=== PATIENT | female | born 1960 | race Hispanic/Latino ===

== ENCOUNTER 2021-10-30 23:08 | Inpatient (IN) | payer SELFPAY ==
--- NOTE | 2021-10-30 23:23 | Emergency Department Report ---
ED Neuro Deficit HPI - General Chief Complaint: Weakness Stated Complaint: POSS STROKE Time Seen by Provider: 10/30/21 23:15 - History of Present Illness Initial Comments: 61 yo F brought in by EMS with possible stroke with right sided weakness that started around 22:30 PM tonight. She was noticed to have facial droop on arrival at her home. Pt denies any WILKINSON or CP, SOB or palpitation. No other modifying or associated factors reported. - Related Data Home Medications: Home Medications Medication Instructions Recorded Confirmed Last Taken Colchicine [Colcrys] 1.8 mg PO PRN PRN 10/31/21 10/31/21 Unknown allopurinoL [Zyloprim] 1 tab PO DAILY 10/31/21 10/31/21 1 Day Ago ~10/30/21 atenoloL [Tenormin] 50 mg PO DAILY 10/31/21 10/31/21 Unknown lisinopriL [Lisinopril] 1 tab PO DAILY 10/31/21 10/31/21 1 Day Ago ~10/30/21 Allergies/Adverse Reactions: Allergies Allergy/AdvReac Type Severity Reaction Status Date / Time No Known Allergies Allergy Verified 10/31/21 06:07 ED Review of Systems ROS: Stated complaint: POSS STROKE Other details as noted in HPI Comment: All other systems reviewed and negative Neurological: weakness (right sided ), other (facial droop) ED Past Medical Hx - Past Medical History Previous Medical History?: No - Social History Substance Use Type: Alcohol - Medications Home Medications: Home Medications Medication Instructions Recorded Confirmed Last Taken Type Colchicine [Colcrys] 1.8 mg PO PRN PRN 10/31/21 10/31/21 Unknown History allopurinoL [Zyloprim] 1 tab PO DAILY 10/31/21 10/31/21 1 Day Ago History ~10/30/21 atenoloL [Tenormin] 50 mg PO DAILY 10/31/21 10/31/21 Unknown History lisinopriL [Lisinopril] 1 tab PO DAILY 10/31/21 10/31/21 1 Day Ago History ~10/30/21 ED Neuro Physical Exam - General Limitations: No Limitations General appearance: alert, in no apparent distress Suspected Stroke: Yes - Head Head exam: Present: atraumatic, normal inspection - Eye Eye exam: Present: normal appearance, PERRL, EOMI Pupils: Present: normal accommodation - ENT ENT exam: Present: normal exam, normal orophraynx, mucous membranes moist - Neck Neck exam: Present: normal inspection, full ROM. Absent: tenderness - Respiratory Respiratory exam: Present: normal lung sounds bilaterally. Absent: respiratory distress, accessory muscle use - Cardiovascular Cardiovascular Exam: Present: regular rate, normal rhythm, normal heart sounds - GI/Abdominal GI/Abdominal exam: Present: soft, normal bowel sounds. Absent: distended, tenderness - Neurological Exam Neurological exam: Present: alert, oriented X3, CN II-XII intact, reflexes normal - NIHSS Assessment Interval: Baseline 1a. Level of Consciousness: alert/keenly responsive 1b. LOC Questions: answers both correctly 1c. LOC Commands: performs tasks correctly 2. Best Gaze: normal 3. Visual: no visual loss 4. Facial Palsy: minor paralysis (right side) 5b. Motor Arm Right: drift 5a. Motor Arm Left: no drift 6a. Motor Leg Left: no drift 6b. Motor Leg Right: no drift 7. Limb Ataxia: absent 8. Sensory: normal 9. Best Language: no aphasia 10. Dysarthria: normal 11. Extinction/Inattention: no abnormality Total Score: 2 Stroke Severity: Minor Stroke - Psychiatric Psychiatric exam: Present: normal affect, normal mood - Skin Skin exam: Present: warm, intact, normal color ED Course Vital Signs 10/30/21 10/31/21 10/31/21 23:45 00:10 00:31 Pulse Rate 78 66 Respiratory 12 11 L Rate Blood Pressure 127/72 O2 Sat by Pulse 95 97 95 Oximetry 10/31/21 10/31/21 10/31/21 01:01 01:31 02:01 Pulse Rate 68 71 70 Respiratory 12 16 16 Rate Blood Pressure 148/76 120/75 139/70 O2 Sat by Pulse 96 95 94 Oximetry 10/31/21 10/31/21 10/31/21 02:31 03:01 03:31 Pulse Rate 68 68 74 Respiratory 17 18 17 Rate Blood Pressure 143/76 125/68 113/58 O2 Sat by Pulse 93 94 95 Oximetry 10/31/21 10/31/21 04:00 04:01 Pulse Rate 85 75 Respiratory 17 Rate Blood Pressure 122/57 O2 Sat by Pulse 100 94 Oximetry - Reevaluation(s) Reevaluation #1: 10/30/21 23:32 here with possible stroke with right sided weakness and noted with mild right facial droops-- CT head ordered with other routine CVA labs -- Got a call from Dr Yamileth Rock the neurologist gabe who recommended tPA after the CT head is resulted negative for intracranial hemorrhage. Will go ahead and order CTA brain and neck as well for further evaluation and treatment. 10/30/21 23:36 Reevaluation #2: 10/30/21 23:49 Pt reports complete resolution of her symptoms after returning from her CT department, no more facial droop or any weakness in her right hand or leg. She also mentioned to me that she was worried any hospital bill because she doesn't have insurance. I reassured her that taken care of her is our number one pr iority. I explained to her that it is reassuring that her symptoms has resolved at this point and that she is not out of the hook yet as she can develop a major event in the next 72 hours. And that is the reason while she needs to stay so will can complete her workup. Pt also told me that she took colchicine around 12 noon yesterday and had a glass of wine tonight before she started having the symptoms. 10/31/21 00:07 10/31/21 00:12 Reevaluation #3: 10/31/21 00:11 CTA brain and neck resulted to be negative for any big artery occlusion-- Reevaluation #4: 10/31/21 00:56 Dr Yamileth Rock updated about the resolution of this patient symptoms-- she agreed not to give the tPA any longer considering the rapid resolution. She however still wanted patient admitted for full neuro workup. 10/31/21 01:31 Dr Monge consulted who accept pt for further evaluation and treatment - Lab Data Result diagrams: 10/30/21 23:37 10/30/21 23:37 Lab Results 10/30/21 10/30/21 10/30/21 Range/Units 23:37 23:37 23:37 WBC 6.4 (4.5-11.0) K/mm3 RBC 3.70 (3.65-5.03) M/mm3 Hgb 12.5 (10.1-14.3) gm/dl Hct 36.0 (30.3-42.9) % MCV 97 (79-97) fl MCH 34 H (28-32) pg MCHC 35 H (30-34) % RDW 14.7 (13.2-15.2) % Plt Count 195 (140-440) K/mm3 Add Manual Diff Complete Total Counted 100 Seg Neutrophils % Horticulturalist Seg Neuts % (Manual) 36.0 L (40.0-70.0) % Band Neutrophils % 0 % Lymphocytes % (Manual) 54.0 H (13.4-35.0) % Reactive Lymphs % (Man) 3.0 % Monocytes % (Manual) 7.0 (0.0-7.3) % Eosinophils % (Manual) 0 (0.0-4.3) % Basophils % (Manual) 0 (0.0-1.8) % Metamyelocytes % 0 % Myelocytes % 0 % Promyelocytes % 0 % Blast Cells % 0 % Nucleated RBC % Not Reportable Seg Neutrophils # Man 2.3 (1.8-7.7) K/mm3 Band Neutrophils # 0.0 K/mm3 Lymphocytes # (Manual) 3.5 (1.2-5.4) K/mm3 Abs React Lymphs (Man) 0.2 K/mm3 Monocytes # (Manual) 0.4 (0.0-0.8) K/mm3 Eosinophils # (Manual) 0.0 (0.0-0.4) K/mm3 Basophils # (Manual) 0.0 (0.0-0.1) K/mm3 Metamyelocytes # 0.0 K/mm3 Myelocytes # 0.0 K/mm3 Promyelocytes # 0.0 K/mm3 Blast Cells # 0.0 K/mm3 WBC Morphology Not Reportable Hypersegmented Neuts Not Reportable Hyposegmented Neuts Not Reportable Hypogranular Neuts Not Reportable Smudge Cells Not Reportable Toxic Granulation Not Reportable Toxic Vacuolation Not Reportable Dohle Bodies Not Reportable Pelger-Huet Anomaly Not Reportable Nehemias Rods Not Reportable Platelet Estimate Consistent w auto Clumped Platelets Not Reportable Plt Clumps, EDTA Not Reportable Large Platelets Not Reportable Giant Platelets Not Reportable Platelet Satelliting Not Reportable Plt Morphology Comment Not Reportable RBC Morphology Not Reportable Dimorphic RBCs Not Reportable Polychromasia Not Reportable Hypochromasia Not Reportable Poikilocytosis Not Reportable Anisocytosis 1+ Microcytosis Not Reportable Macrocytosis Not Reportable Spherocytes Not Reportable Pappenheimer Bodies Not Reportable Sickle Cells Not Reportable Target Cells Not Reportable Tear Drop Cells Not Reportable Ovalocytes Not Reportable Helmet Cells Not Reportable [place] Bodies Not Reportable Ideal Rings Not Reportable [place] Cells Not Reportable Bite Cells Not Reportable Crenated Cell Not Reportable Elliptocytes Not Reportable Acanthocytes (Spur) Not Reportable Rouleaux Not Reportable Hemoglobin C Crystals Not Reportable Schistocytes Not Reportable Malaria parasites Not Reportable Jaspal Bodies Not Reportable Hem Pathologist Commnt No PT (12.2-14.9) Sec. INR (0.87-1.13) APTT (24.2-36.6) Sec. Sodium 125 L (137-145) mmol/L Potassium 4.2 (3.6-5.0) mmol/L Chloride 90.0 L (98-107) mmol/L Carbon Dioxide 18 L (22-30) mmol/L Anion Gap 21 mmol/L BUN 11 (7-17) mg/dL Creatinine 1.0 (0.6-1.2) mg/dL Estimated GFR 56 ml/min BUN/Creatinine Ratio 11 % Glucose 118 H (65-100) mg/dL POC Glucose (70-105) mg/dL Calcium 8.6 (8.4-10.2) mg/dL Total Bilirubin 0.20 (0.1-1.2) mg/dL AST 52 H (5-40) units/L ALT 57 H (7-56) units/L Alkaline Phosphatase 64 (35-129) units/L Troponin T < 0.010 (0.00-0.029) ng/mL Total Protein 5.8 L (6.3-8.2) g/dL Albumin 3.8 L (3.9-5) g/dL Albumin/Globulin Ratio 1.9 % TSH 3.280 (0.270-4.200) mlU/mL Urine Color (Yellow) Urine Turbidity (Clear) Urine pH (5.0-7.0) Ur Specific [place] (1.003-1.030) Urine Protein (Negative) mg/dL Urine Glucose (UA) (Negative) mg/dL Urine Ketones (Negative) mg/dL Urine Blood (Negative) Urine Nitrite (Negative) Urine Bilirubin (Negative) Urine Urobilinogen (<2.0) mg/dL Ur Leukocyte Esterase (Negative) Urine WBC (Auto) (0.0-6.0) /HPF Urine RBC (Auto) (0.0-6.0) /HPF U Epithel Cells (Auto) (0-13.0) /HPF Urine Mucus /HPF 10/30/21 10/30/21 10/31/21 Range/Units 23:37 Unknown 00:14 WBC (4.5-11.0) K/mm3 RBC (3.65-5.03) M/mm3 Hgb (10.1-14.3) gm/dl Hct (30.3-42.9) % MCV (79-97) fl MCH (28-32) pg MCHC (30-34) % RDW (13.2-15.2) % Plt Count (140-440) K/mm3 Add Manual Diff Total Counted Seg Neutrophils % Seg Neuts % (Manual) (40.0-70.0) % Band Neutrophils % % Lymphocytes % (Manual) (13.4-35.0) % Reactive Lymphs % (Man) % Monocytes % (Manual) (0.0-7.3) % Eosinophils % (Manual) (0.0-4.3) % Basophils % (Manual) (0.0-1.8) % Metamyelocytes % % Myelocytes % % Promyelocytes % % Blast Cells % % Nucleated RBC % Seg Neutrophils # Man (1.8-7.7) K/mm3 Band Neutrophils # K/mm3 Lymphocytes # (Manual) (1.2-5.4) K/mm3 Abs React Lymphs (Man) K/mm3 Monocytes # (Manual) (0.0-0.8) K/mm3 Eosinophils # (Manual) (0.0-0.4) K/mm3 Basophils # (Manual) (0.0-0.1) K/mm3 Metamyelocytes # K/mm3 Myelocytes # K/mm3 Promyelocytes # K/mm3 Blast Cells # K/mm3 WBC Morphology Hypersegmented Neuts Hyposegmented Neuts Hypogranular Neuts Smudge Cells Toxic Granulation Toxic Vacuolation Dohle Bodies Pelger-Huet Anomaly Nehemias Rods Platelet Estimate Clumped Platelets Plt Clumps, EDTA Large Platelets Giant Platelets Platelet Satelliting Plt Morphology Comment RBC Morphology Dimorphic RBCs Polychromasia Hypochromasia Poikilocytosis Anisocytosis Microcytosis Macrocytosis Spherocytes Pappenheimer Bodies Sickle Cells Target Cells Tear Drop Cells Ovalocytes Helmet Cells [place] Bodies Ideal Rings [place] Cells Bite Cells Crenated Cell Elliptocytes Acanthocytes (Spur) Rouleaux Hemoglobin C Crystals Schistocytes Malaria parasites Jaspal Bodies Hem Pathologist Commnt PT 15.4 H (12.2-14.9) Sec. INR 1.09 (0.87-1.13) APTT 29.4 (24.2-36.6) Sec. Sodium (137-145) mmol/L Potassium (3.6-5.0) mmol/L Chloride (98-107) mmol/L Carbon Dioxide (22-30) mmol/L Anion Gap mmol/L BUN (7-17) mg/dL Creatinine (0.6-1.2) mg/dL Estimated GFR ml/min BUN/Creatinine Ratio % Glucose (65-100) mg/dL POC Glucose 107 H (70-105) mg/dL Calcium (8.4-10.2) mg/dL Total Bilirubin (0.1-1.2) mg/dL AST (5-40) units/L ALT (7-56) units/L Alkaline Phosphatase (35-129) units/L Troponin T (0.00-0.029) ng/mL Total Protein (6.3-8.2) g/dL Albumin (3.9-5) g/dL Albumin/Globulin Ratio % TSH (0.270-4.200) mlU/mL Urine Color Colorless (Yellow) Urine Turbidity Clear (Clear) Urine pH 5.0 (5.0-7.0) Ur Specific [place] 1.018 (1.003-1.030) Urine Protein <15 mg/dl (Negative) mg/dL Urine Glucose (UA) Neg (Negative) mg/dL Urine Ketones Neg (Negative) mg/dL Urine Blood Neg (Negative) Urine Nitrite Neg (Negative) Urine Bilirubin Neg (Negative) Urine Urobilinogen < 2.0 (<2.0) mg/dL Ur Leukocyte Esterase Neg (Negative) Urine WBC (Auto) < 1.0 (0.0-6.0) /HPF Urine RBC (Auto) 0.0 (0.0-6.0) /HPF U Epithel Cells (Auto) < 1.0 (0-13.0) /HPF Urine Mucus Few /HPF - EKG Data -: EKG Interpreted by Me EKG shows normal: sinus rhythm Rate: normal When compared to previous EKG there are: previous EKG unavailable Interpretation: nonspecific ST-T wave shamir - Core Measures AMI Core Measures Followed: Yes Measure Exclusions: not indicated Critical care attestation.: If time is entered above; I have spent that time in minutes in the direct care of this critically ill patient, excluding procedure time. ED Disposition Clinical Impression: Ischemic stroke, TIA (transient ischemic attack) Disposition: ADMITTED INPATIENT Is pt being admited?: Yes Does the pt Need Aspirin: No Condition: Serious Time of Disposition: 01:32
[2021-10-30] MEDS ORDERED: ALTEPLASE 100 MG INJ KIT ONE (23:25)
--- NOTE | 2021-10-30 23:25 | Emergency Department Report ---
Blank Doc - Documentation Documentation: [facility] Consult Note # Demographics Consult Type: Acute Stroke Level 1 (0-4.5 hrs) Patient Location: Emergency Room First Name: Rosy Staples Last Name: Paco Date of : 1960 Age: 61 Gender: Female Facility: [facility] Time of Initial Page ( Time): 10/30/2021, 23:16 Time of Return Call ( Time): 10/30/2021, 23:16 # HPI History: 2199 right sided weakness started. Possible Thrombolytic candidate: not on warfarin or NOACs no intracranial hemorrhage history no recent major surgery no known active major internal bleeding no known blood disorders # Scores Time of exam and NIHSS (): 10/30/2021, 23:16 Level of Consciousness 1a: [0] = Alert; keenly responsive LOC Questions 1b: [0] = Answers both questions correctly LOC Commands 1c: [0] = Performs both tasks correctly Best Gaze 2: [0] = Normal Visual 3: [0] = No visual loss Facial Palsy 4: [2] = Partial paralysis Motor Arm Left 5a: [0] = No drift Motor Arm Right 5b: [1] = Drift Motor Leg Left 6a: [0] = No drift Motor Leg Right 6b: [1] = Drift Limb Ataxia 7: [0] = Absent Sensory 8: [1] = [id number]-[id number] sensory loss Best Language 9: [0] = No aphasia Dysarthria 10: [1] = [id number] dysarthria Extinction and Inattention 11: [0] = No abnormality NIHSS Total: 6 # Data Head CT: no bleed preliminary read awaiting formal read on CT prior to tPA # Assessment Impression: Ischemic Stroke (Acute) # Plan Thrombolytic/Intervention: IV Thrombolysis Intraarterial Exclusion: clinically consistent with small vessel disease Time IV Thrombolytic Recommended (): 10/30/2021, 23:18 Blood Pressure Management: nicardipine labetolol Labs: hemoglobin A1c lipid panel Imaging: (urgency: STAT): CT Angiogram Head and CT Angiogram Neck AND call back with results if abnormal Imaging: (urgency: routine): MRI Brain without contrast Diagnostic Test: echo without bubble study Therapy/Evaluation: NPO until swallow evaluation PT/OT evaluation speech/swallow consultation Medication: start statin with goal of LDL < 70 DVT Prophylaxis: SCD Thrombolytic Administration Recommendations: I reviewed the risks/benefits/alternatives of IV thrombolytic therapy with the patient. They understand there is potential of life threatening hemorrhage from IV thrombolysis. I stated that I believe benefits outweighs risk. They wish to proceed with IV thrombolytic therapy. I have collected independent history specific to time last normal or last known well. We have collaborated with the ED provider and at this time, we have the most current timeline with the information that is available. BP goal< 180/105 for 24hrs post Thrombolytic administration Use Labetolol 10-20mg IV prn or Nicardipine gtt to maintain BP parameters No antiplatelets or anticoagulants for next 24 hrs unless indicated for emergent IA procedure or other life threatening situation ICU admission Call back if there is any decline in neurological condition the patient provided verbal consent to thrombolytics after the risks benefits and alternatives to treatment were discussed as above. Witnesses to this conversation were the sorter/assay tech and the bedside nurse Other: LDL < 70 If patient has any neurological deterioration please call me back immediately permissive hypertension telemetry monitoring I have discussed my recommendations with the referring provider # Logistics Telemedicine: Interactive 2 way audio and visual telecommunication technology was utilized during this visit
[2021-10-30 23:48] LABS: Hemoglobin 12.5 gm/dl (10.1-14.3); Mean Corpuscular HGB Conc 35 % (30-34); Mean Corpuscular Volume 97 fl (79-97); Platelet Count 195 K/mm3 (140-440); Red Cell Distribution Width 14.7 % (13.2-15.2)
--- NOTE | 2021-10-30 23:56 | Cat Scan Report ---
CT HEAD WITHOUT CONTRAST INDICATION / CLINICAL INFORMATION: stroke. Right-sided facial droop and numbness resolved at the time of notification. TECHNIQUE: CT head was performed without administration of intravenous contrast. All CT scans at this location are performed using CT dose reduction for ALARA by means of automated exposure control. COMPARISON: None available. FINDINGS: CEREBRAL PARENCHYMA: Generalized cortical and central atrophy. Periventricular regions of white matte r hypoattenuation compatible with microvascular ischemia. Focal hypodensity within the left frontal w adela matter and centrum semiovale ill-defined subcortical hypoattenuation right frontal white matter are demonstrated. Additional small lacunar infarctions within the basal ganglia present. HEMORRHAGE: None. EXTRA-AXIAL SPACES: Normal in size and morphology for the patient's age. VENTRICULAR SYSTEM: Normal in size and morphology for the patient's age. MIDLINE SHIFT / HERNIATION: None. CEREBELLUM / BRAINSTEM: No significant abnormality. ORBITS: No significant abnormality. SOFT TISSUES: No significant abnormality. SKULL: No significant abnormality. PARANASAL SINUSES / MASTOID AIR CELLS: Normal as visualized. ADDITIONAL FINDINGS: None. IMPRESSION: 1. No acute intracranial abnormality. Senescent changes as detailed. CODE STROKE Time of Communication (CHILD WELFARE DIRECTOR/CDT): 2249 hours Licensed Practitioner Receiving Report: Dr. Gamble Signer Name: Saravanan Baxter II, MD Signed: 10/30/2021 11:51 PM Workstation Name: [id number] [id number]
[2021-10-31 00:01] LABS: INR 1.09 (0.87-1.13); Partial Thromboplastin Time 29.4 Sec. (24.2-36.6)
--- NOTE | 2021-10-31 00:02 | Cat Scan Report ---
CT angio neck, CT angio head INDICATION / CLINICAL INFORMATION: stroke. TECHNIQUE: CT angiography of head and neck was performed prior to and following administration of 100 cc of Omnipaque 350 intravenous contrast. In addition to axial source images, reconstructed coronal and sagittal MPR series as well as thin slab coronal and sagittal MIP series were provided. . Calcu lation of stenosis will be made using direct NASCET criteria. All CT scans at this location are perfo rmed using CT dose reduction for ALARA by means of automated exposure control. COMPARISON: None available. FINDINGS: VASCULAR FINDINGS: NECK: AORTA: The aorta demonstrates normal branch morphology. No acute aortic pathology. No severe stenosi s of great vessel origins. Mild to moderate stenosis of the left subclavian artery origin is suggeste d but blurred by motion. Small penetrating ulcer anterior margin of the arch measuring 2 to 3 mm. GREAT VESSELS: No significant abnormality demonstrated involving great vessels. VERTEBRAL ARTERIES: Vertebral origins are patent. The bilateral V2 segments demonstrate no significan t abnormality. Right vertebral artery dominant. RIGHT CAROTID: The right common carotid artery, common carotid artery bifurcation, external carotid a rtery, and cervical segment internal carotid artery demonstrate no significant abnormalities. No sign ificant intimal calcification at bifurcation. LEFT CAROTID: The left common carotid artery, common carotid artery bifurcation, external carotid art markel, and cervical segment internal carotid artery demonstrate no significant abnormalities. Nonsignif icant intimal calcification at bifurcation. VENOUS STRUCTURES: No significant abnormality of the jugular veins is demonstrated. INTRACRANIAL CIRCULATION: RIGHT ICA: The right petrous, cavernous, supraclinoid segments of the ICA demonstrate no significant abnormalities. The right supraclinoid bifurcation is patent. The right A1 segment is patent. RIGHT FROY: The right anterior cerebral artery demonstrates no evidence of aneurysm, severe stenosis, or occlusion. RIGHT MCA: The right MCA demonstrates no evidence of large vessel occlusion, aneurysm formation, or s evere stenosis. LEFT ICA: The left petrous, cavernous, supraclinoid segments of the ICA demonstrate no significant ab normalities. The left supraclinoid bifurcation is patent. The left A1 segment is patent. LEFT FROY: The left FROY demonstrates no evidence of aneurysm formation, occlusion, or severe stenosis. LEFT MCA: The left MCA demonstrates no evidence of large vessel occlusion, aneurysm formation, or sev ere stenosis. ANTERIOR COMMUNICATING ARTERY: No significant abnormality. POSTERIOR COMMUNICATING ARTERIES: Not identified thought to be anatomically absent. VERTEBRAL CONFLUENCE: The vertebral confluence demonstrates no significant abnormality. Left vertebra l dominance. BASILAR ARTERY: Basilar artery demonstrates no significant abnormality. Bifurcation and bilateral P1 segments demonstrate patency without evidence of aneurysm formation, significant stenosis, or occlusi on. RIGHT WAGE CONCILIATOR: The right WAGE CONCILIATOR demonstrates no evidence of occlusion, aneurysm formation, or severe stenosi s. LEFT WAGE CONCILIATOR: The left WAGE CONCILIATOR demonstrates no evidence of occlusion, aneurysm formation, or severe stenosis. DURAL SINUSES AND CORTICAL DURAL VEINS: The dural sinuses and cortical dural veins demonstrate no sig nificant abnormalities. NONVASCULAR FINDINGS: The intracranial contents, intraorbital contents, paranasal sinuses, mastoid air cells, soft tissues and musculature of the face, soft tissues and musculature of the neck, thyroid, and upper chest demon strate no significant abnormalities. IMPRESSION: 1. No evidence of large vessel occlusion, aneurysm formation, or severe stenosis involving the anteri or or posterior intracranial circulation. The cervical arterial structures demonstrate no significant abnormalities. 2. The dural sinuses and cortical epidural veins as well as the cervical venous structures demonstrat e no significant abnormality. 3. Nonvascular structures demonstrate no significant abnormality. CODE STROKE Time of Communication (ASTRONOMY DEPARTMENT CHAIR/CDT): 2055 hours Licensed Practitioner Receiving Report: Dr. Gamble Signer Name: Saravanan Baxter II, MD Signed: 10/30/2021 11:57 PM Workstation Name: [id number]
--- NOTE | 2021-10-31 00:02 | Cat Scan Report ---
CT angio neck, CT angio head INDICATION / CLINICAL INFORMATION: stroke. TECHNIQUE: CT angiography of head and neck was performed prior to and following administration of 100 cc of Omnipaque 350 intravenous contrast. In addition to axial source images, reconstructed coronal and sagittal MPR series as well as thin slab coronal and sagittal MIP series were provided. . Calcu lation of stenosis will be made using direct NASCET criteria. All CT scans at this location are perfo rmed using CT dose reduction for ALARA by means of automated exposure control. COMPARISON: None available. FINDINGS: VASCULAR FINDINGS: NECK: AORTA: The aorta demonstrates normal branch morphology. No acute aortic pathology. No severe stenosi s of great vessel origins. Mild to moderate stenosis of the left subclavian artery origin is suggeste d but blurred by motion. Small penetrating ulcer anterior margin of the arch measuring 2 to 3 mm. GREAT VESSELS: No significant abnormality demonstrated involving great vessels. VERTEBRAL ARTERIES: Vertebral origins are patent. The bilateral V2 segments demonstrate no significan t abnormality. Right vertebral artery dominant. RIGHT CAROTID: The right common carotid artery, common carotid artery bifurcation, external carotid a rtery, and cervical segment internal carotid artery demonstrate no significant abnormalities. No sign ificant intimal calcification at bifurcation. LEFT CAROTID: The left common carotid artery, common carotid artery bifurcation, external carotid art markel, and cervical segment internal carotid artery demonstrate no significant abnormalities. Nonsignif icant intimal calcification at bifurcation. VENOUS STRUCTURES: No significant abnormality of the jugular veins is demonstrated. INTRACRANIAL CIRCULATION: RIGHT ICA: The right petrous, cavernous, supraclinoid segments of the ICA demonstrate no significant abnormalities. The right supraclinoid bifurcation is patent. The right A1 segment is patent. RIGHT FROY: The right anterior cerebral artery demonstrates no evidence of aneurysm, severe stenosis, or occlusion. RIGHT MCA: The right MCA demonstrates no evidence of large vessel occlusion, aneurysm formation, or s evere stenosis. LEFT ICA: The left petrous, cavernous, supraclinoid segments of the ICA demonstrate no significant ab normalities. The left supraclinoid bifurcation is patent. The left A1 segment is patent. LEFT FROY: The left FROY demonstrates no evidence of aneurysm formation, occlusion, or severe stenosis. LEFT MCA: The left MCA demonstrates no evidence of large vessel occlusion, aneurysm formation, or sev ere stenosis. ANTERIOR COMMUNICATING ARTERY: No significant abnormality. POSTERIOR COMMUNICATING ARTERIES: Not identified thought to be anatomically absent. VERTEBRAL CONFLUENCE: The vertebral confluence demonstrates no significant abnormality. Left vertebra l dominance. BASILAR ARTERY: Basilar artery demonstrates no significant abnormality. Bifurcation and bilateral P1 segments demonstrate patency without evidence of aneurysm formation, significant stenosis, or occlusi on. RIGHT DIVISION OPERATIONS MANAGER: The right DIVISION OPERATIONS MANAGER demonstrates no evidence of occlusion, aneurysm formation, or severe stenosi s. LEFT DIVISION OPERATIONS MANAGER: The left DIVISION OPERATIONS MANAGER demonstrates no evidence of occlusion, aneurysm formation, or severe stenosis. DURAL SINUSES AND CORTICAL DURAL VEINS: The dural sinuses and cortical dural veins demonstrate no sig nificant abnormalities. NONVASCULAR FINDINGS: The intracranial contents, intraorbital contents, paranasal sinuses, mastoid air cells, soft tissues and musculature of the face, soft tissues and musculature of the neck, thyroid, and upper chest demon strate no significant abnormalities. IMPRESSION: 1. No evidence of large vessel occlusion, aneurysm formation, or severe stenosis involving the anteri or or posterior intracranial circulation. The cervical arterial structures demonstrate no significant abnormalities. 2. The dural sinuses and cortical epidural veins as well as the cervical venous structures demonstrat e no significant abnormality. 3. Nonvascular structures demonstrate no significant abnormality. CODE STROKE Time of Communication (WATCH CASE POLISHER/CDT): 2055 hours Licensed Practitioner Receiving Report: Dr. Gamble Signer Name: Saravanan Baxter II, MD Signed: 10/30/2021 11:57 PM Workstation Name: [id number]
[2021-10-31 00:03] LABS: Alanine Aminotransferase 57 units/L (7-56); Albumin 3.8 g/dL (3.9-5); BUN/Creatinine Ratio 11; Blood Urea Nitrogen 11 mg/dL (7-17); Calcium 8.6 mg/dL (8.4-10.2); Hemolysis Index 8
--- NOTE | 2021-10-31 01:12 | XRay Report ---
CHEST 1 VIEW INDICATION / CLINICAL INFORMATION: stroke. COMPARISON: None available. FINDINGS: SUPPORT DEVICES: None. HEART / MEDIASTINUM: No significant abnormality. LUNGS / PLEURA: The lungs are clear. No pneumothorax. BONES: No significant osseous abnormality. ADDITIONAL FINDINGS: No significant additional findings. IMPRESSION: 1. No active cardiopulmonary disease. Signer Name: Saravanan Baxter II, MD Signed: 10/31/2021 1:08 AM Workstation Name: [id number]
[2021-10-31] MEDS ORDERED: MORPHINE 2 MG/1 ML INJ IV PRN ×2 (02:37)
[2021-10-31] MEDS ORDERED: MAGNESIUM HYDROXIDE (MOM) ORAL LIQD UDC PO PRN ×2 (02:37)
[2021-10-31] MEDS ORDERED: ONDANSETRON 4 MG/2 ML INJ IV PRN ×2 (02:37)
[2021-10-31] MEDS ORDERED: METOCLOPRAMIDE 10 MG TAB PO PRN (02:37)
[2021-10-31] MEDS ORDERED: MORPHINE 4 MG/1 ML INJ IV PRN ×2 (02:37)
[2021-10-31] MEDS ORDERED: ACETAMINOPHEN 325 MG TAB PO PRN ×2 (02:37)
[2021-10-31] MEDS ORDERED: PROMETHAZINE 25 MG RECT SUPP PR PRN (02:37)
--- NOTE | 2021-10-31 02:52 | History and Physical Report ---
History of Present Illness Date of examination: 10/31/21 Date of admission: 10/31/2021 Chief complaint: Right-sided weakness History of present illness: 61-year-old female with significant past medical history of hypertension presenting to the emergency room today with right-sided weakness which started at about 10:30 PM today. She has also noticed some facial asymmetry at home. She denies any headache or dizziness and denies any diaphoresis. Denies any fever or chills, no nausea vomiting and no abdominal pain. Denies any chest pain or shortness of breath. Work-up in the emergency room today, CT scan of the head compatible with microvascular ischemia. Focal hypodensity within the left frontal white matter and centrum semiovale. Small lacunar infarctions within the basal ganglia. Chest x-ray was negative. CTA head and neck was negative. Past History Past Medical History: hypertension Past Surgical History: No surgical history Social history: no significant social history, alcohol abuse (Drinks alcohol occasionally) Family history: no significant family history Medications and Allergies Allergies Allergy/AdvReac Type Severity Reaction Status Date / Time No Known Allergies Allergy Verified 10/31/21 06:07 Home Medications Medication Instructions Recorded Confirmed Last Taken Type Colchicine [Colcrys] 1.8 mg PO PRN PRN 10/31/21 10/31/21 Unknown History allopurinoL [Zyloprim] 1 tab PO DAILY 10/31/21 10/31/21 1 Day Ago History ~10/30/21 atenoloL [Tenormin] 50 mg PO DAILY 10/31/21 10/31/21 Unknown History lisinopriL [Lisinopril] 1 tab PO DAILY 10/31/21 10/31/21 1 Day Ago History ~10/30/21 Review of Systems Constitutional: no fever, no chills Ears, nose, mouth and throat: no nasal congestion, no sore throat Cardiovascular: no chest pain, no palpitations Respiratory: no cough, no shortness of breath Gastrointestinal: no abdominal pain, no nausea, no vomiting, no diarrhea Genitourinary Female: no pelvic pain, no flank pain, no dysuria Musculoskeletal: no neck pain, no low back pain Integumentary: no rash, no pruritis Neurological: no headaches, no confusion Psychiatric: no anxiety, no depression Endocrine: no polyphagia, no polydipsia, no polyuria, no nocturia Exam - Constitutional Vitals: Temp Pulse Resp BP Pulse Ox 71 16 120/75 95 10/31/21 01:31 10/31/21 01:31 10/31/21 01:31 10/31/21 01:31 General appearance: Present: no acute distress, well-nourished - EENT Eyes: Present: PERRL, EOM intact. Absent: scleral icterus ENT: hearing intact, clear oral mucosa, dentition normal - Neck Neck: Present: supple, normal ROM - Respiratory Respiratory effort: normal Respiratory: bilateral: CTA - Cardiovascular Rhythm: regular Heart Sounds: Present: S1 & S2. Absent: gallop, systolic murmur, diastolic murmur, rub, click - Extremities Extremities: no ischemia, pulses intact, pulses symmetrical, No edema, normal temperature, normal color, Full ROM Peripheral Pulses: within normal limits - Abdominal General gastrointestinal: Present: soft, non-tender, non-distended, normal bowel sounds. Absent: mass - Integumentary Integumentary: Present: clear, warm, dry, normal turgor. Absent: rash - Musculoskeletal Musculoskeletal: strength equal bilaterally - Psychiatric Psychiatric: appropriate mood/affect, intact judgment & insight, memory intact, cooperative - Neurologic Neurologic: CNII-XII intact, moves all extremities, other (Right-sided facial droop) HEART Score - HEART Score Troponin: Troponin T < 0.010 ng/mL (0.00-0.029) 10/30/21 23:37 Results - Labs CBC & Chem 7: 10/30/21 23:37 10/30/21 23:37 Labs: Abnormal lab results 10/30/21 10/30/21 10/30/21 Range/Units 23:37 23:37 23:37 MCH 34 H (28-32) pg MCHC 35 H (30-34) % PT 15.4 H (12.2-14.9) Sec. Sodium 125 L (137-145) mmol/L Chloride 90.0 L (98-107) mmol/L Carbon Dioxide 18 L (22-30) mmol/L Glucose 118 H (65-100) mg/dL POC Glucose (70-105) mg/dL AST 52 H (5-40) units/L ALT 57 H (7-56) units/L Total Protein 5.8 L (6.3-8.2) g/dL Albumin 3.8 L (3.9-5) g/dL 10/31/21 Range/Units 00:14 MCH (28-32) pg MCHC (30-34) % PT (12.2-14.9) Sec. Sodium (137-145) mmol/L Chloride (98-107) mmol/L Carbon Dioxide (22-30) mmol/L Glucose (65-100) mg/dL POC Glucose 107 H (70-105) mg/dL AST (5-40) units/L ALT (7-56) units/L Total Protein (6.3-8.2) g/dL Albumin (3.9-5) g/dL Assessment and Plan - Patient Problems (1) Ischemic stroke Current Visit: Yes Status: Acute Plan to address problem: Patient admitted and placed on telemetry. Patient commenced on daily aspirin and statin. We will schedule for MRI of the brain, echocardiogram and carotid Doppler. Consult placed to neurology for evaluation. (2) DVT prophylaxis Current Visit: Yes Status: Acute Plan to address problem: Patient placed on subcutaneous heparin. (3) Full code status Current Visit: Yes Status: Acute Plan to address problem: Patient is full code.
[2021-10-31 02:59] LABS: Anisocytosis 1+; Basophils % (Manual) 0 % (0.0-1.8); Eosinophils % (Manual) 0 % (0.0-4.3); Platelet Estimate Consistent w Auto; Total Cells Counted 100
[2021-10-31 04:52] LABS: Bilirubin,Urine NEG (Negative); Blood,Urine NEG (Negative); Color,Urine Colorless (Yellow); Mucus,Urine FEW /HPF; Protein,Urine <15 mg/dL mg/dL (Negative); Urobilinogen,Urine < 2.0 mg/dL (<2.0); WBC,Urine < 1.0 /HPF (0.0-6.0)
[2021-10-31] MEDS: HEPARIN 5,000 UNIT/1 ML VIAL SUB-Q SCH ×3 (06:45→21:19)
--- NOTE | 2021-10-31 08:06 | Consultation ---
History of Present Illness Consult date: 10/31/21 Reason for Consult: new right side weakness,Post TPA History of present illness: Right-sided weakness History of present illness: 61-year-old female with significant past medical history of hypertension presenting to the emergency room today with right-sided weakness which started at about 10:30 PM today. She has also noticed some facial asymmetry at home. She denies any headache or dizziness and denies any diaphoresis. Denies any fever or chills, no nausea vomiting and no abdominal pain. Denies any chest maryann n or shortness of breath. Work-up in the emergency room today, CT scan of the head compatible with microvascular ischemia. Focal hypodensity within the left frontal white matter and centrum semiovale. Small lacunar infarctions within the basal ganglia. Chest x-ray was negative. CTA head and neck was negative. In ER initial NIH was #6 pt. did not get TPA as per Er report due to improved symptoms and after D/W neurology occupational therapist assistant today she is still with right side weakness and facial droop, she is started on ASA and Lipitor LDL#191 A1C#5.5 echo is pending MRI is pending she denied hx of CVA but CT brain showed remoteleft frontal and BG infarct she somkes1/2 PPD and drinks wine average at least twice a week Past History Past Medical History: hypertension Past Surgical History: No surgical history Social history: no significant social history, alcohol abuse (Drinks alcohol occasionally) Family history: no significant family history Medications and Allergies Allergies Allergy/AdvReac Type Severity Reaction Status Date / Time No Known Allergies Allergy Verified 10/31/21 06:07 Home Medications Medication Instructions Recorded Confirmed Last Taken Type Colchicine [Colcrys] 1.8 mg PO PRN PRN 10/31/21 10/31/21 Unknown History allopurinoL [Zyloprim] 1 tab PO DAILY 10/31/21 10/31/21 1 Day Ago History ~10/30/21 atenoloL [Tenormin] 50 mg PO DAILY 10/31/21 10/31/21 Unknown History lisinopriL [Lisinopril] 1 tab PO DAILY 10/31/21 10/31/21 1 Day Ago History ~10/30/21 Review of Systems Constitutional: no fever, no chills Ears, nose, mouth and throat: no nasal congestion, no sore throat Cardiovascular: no chest pain, no palpitations Respiratory: no cough, no shortness of breath Gastrointestinal: no abdominal pain, no nausea, no vomiting, no diarrhea Genitourinary Female: no pelvic pain, no flank pain, no dysuria Musculoskeletal: no neck pain, no low back pain Integumentary: no rash, no pruritis Neurological: no headaches, no confusion Psychiatric: no anxiety, no depression Endocrine: no polyphagia, no polydipsia, no polyuria, no nocturia Exam Past History Past Medical History: hypertension Past Surgical History: No surgical history Social history: no significant social history, alcohol abuse (Drinks alcohol occasionally) Family history: no significant family history Medications and Allergies Allergies Allergy/AdvReac Type Severity Reaction Status Date / Time No Known Allergies Allergy Verified 10/31/21 06:07 Home Medications Medication Instructions Recorded Confirmed Last Taken Type Colchicine [Colcrys] 1.8 mg PO PRN PRN 10/31/21 10/31/21 Unknown History allopurinoL [Zyloprim] 1 tab PO DAILY 10/31/21 10/31/21 1 Day Ago History ~10/30/21 atenoloL [Tenormin] 50 mg PO DAILY 10/31/21 10/31/21 Unknown History lisinopriL [Lisinopril] 1 tab PO DAILY 10/31/21 10/31/21 1 Day Ago History ~10/30/21 Active Meds: Active Medications Acetaminophen (Acetaminophen 325 Mg Tab) 650 mg PO Q4H PRN PRN Reason: Pain, Mild (1-3) Aspirin (Aspirin 325 Mg Tab) 325 mg PO QDAY [facility] Atorvastatin Calcium (Atorvastatin 40 Mg Tab) 40 mg PO QHS [facility] Bisacodyl (Bisacodyl 10 Mg Rect Supp) 10 mg NH QDAY PRN PRN Reason: Constipation Heparin Sodium (Porcine) (Heparin 5,000 Unit/1 Ml Vial) 5,000 unit SUB-Q Q8HR [facility] Last Admin: 10/31/21 06:45 Dose: 5,000 unit Magnesium Hydroxide (Magnesium Hydroxide (Mom) Oral Liqd Udc) 30 ml PO Q4H PRN PRN Reason: Constipation Metoclopramide HCl (Metoclopramide 10 Mg Tab) 10 mg PO Q6H PRN PRN Reason: Nausea And Vomiting Morphine Sulfate (Morphine 2 Mg/1 Ml Inj) 2 mg IV Q4H PRN PRN Reason: Pain, Moderate (4-6) Morphine Sulfate (Morphine 4 Mg/1 Ml Inj) 4 mg IV Q4H PRN PRN Reason: Pain , Severe (7-10) Ondansetron HCl (Ondansetron 4 Mg/2 Ml Inj) 4 mg IV Q8H PRN PRN Reason: Nausea And Vomiting Promethazine HCl (Promethazine 25 Mg Rect Supp) 25 mg NH Q6H PRN PRN Reason: Nausea And Vomiting Sodium Chloride (Sodium Chloride 0.9% 10 Ml Flush Syringe) 10 ml IV BID CARMELA Sodium Chloride (Sodium Chloride 0.9% 10 Ml Flush Syringe) 10 ml IV PRN PRN PRN Reason: LINE FLUSH Sodium Chloride (Sodium Chloride 0.9% 10 Ml Flush Syringe) 10 ml IV PRN PRN PRN Reason: LINE FLUSH Physical Examination - Vital Signs Vital Signs: Vital Signs Pulse Ox 95 10/30/21 23:45 - Constitutional General appearance: comfortable - EENT EENT: Present: PERRL, mucous membranes moist - Respiratory Respiratory: Present: chest non-tender, lungs clear, rhonchi - Cardiovascular Cardiovascular: Present: regular rate, normal S1, normal S2 Extremities: Present: no peripheral edema bilatateraly, no clubbing, cyanosis - Gastrointestinal Gastrointestinal: Present: normoactive bowel sounds - Integumentary Integumentary: Present: normal - Neurologic Cranial nerve examination: PERRL, EOMI, facial droop Speech examination: intact Sensorimotor examination: intact Detailed motor examination: other (right upper is 3+/5 and lower 4-/5 , reflexes is brisk bilateral no adorno no clonus , but slight increase tone lower extremities , gait not done , sensation is intact) - Level of Consciousness 1a. Level of Consciousness: alert/keenly responsive - LOC Questions 1b. LOC Questions: answers both correctly - LOC Command 1c. LOC Commands: performs tasks correctly - Best Gaze 2. Best Gaze: normal - Visual 3. Visual: no visual loss - Facial Palsy 4. Facial Palsy: minor paralysis - Motor Arm 5a. Motor Arm Left: no drift 5b. Motor Arm Right: drift - Motor Leg 6a. Motor Leg Left: no drift 6b. Motor Leg Right: drift - Limb Ataxia 7. Limb Ataxia: absent - Sensory 8. Sensory: normal - Best Language 9. Best Language: no aphasia - Dysarthria 10. Dysarthria: normal - Extinction and Inattention 11. Extinction/Inattention: no abnormality - Scoring Total Score: 3 Stroke Severity: Minor Stroke Results - Laboratory Findings CBC and BMP: 10/30/21 23:37 10/30/21 23:37 Abnormal Lab Findings: Abnormal Labs 10/30/21 10/30/21 10/30/21 23:37 23:37 23:37 MCH 34 H MCHC 35 H Seg Neuts % (Manual) 36.0 L Lymphocytes % (Manual) 54.0 H PT 15.4 H Sodium 125 L Chloride 90.0 L Carbon Dioxide 18 L Glucose 118 H POC Glucose AST 52 H ALT 57 H Total Protein 5.8 L Albumin 3.8 L 10/31/21 00:14 MCH MCHC Seg Neuts % (Manual) Lymphocytes % (Manual) PT Sodium Chloride Carbon Dioxide Glucose POC Glucose 107 H AST ALT Total Protein Albumin Assessment and Plan Assessment and Plan 61-year-old female with significant past medical history of hypertension presenting to the emergency room today with right-sided weakness which started at about 10:30 PM today. She has also noticed some facial asymmetry at home. She denies any headache or dizziness and denies any diaphoresis. Denies any fever or chills, no nausea vomiting and no abdominal pain. Denies any chest pain or shortness of breath. - Patient Problems #New onset right side weakness -presented to Er within<4 hours -Ct brain is remarkable for remote left frontal ischemia and BG infarct -CTA brain and neck are unremarkable -TPA is cancelled as pt. symptoms improved as per ER evaluation -started on ASA and Lipitor -Initial NIh#6--Today is #3 -LDL#191 -A1C#5.5 -MRI brain is pending -echo is pending -BP WNL -PT/ST evaluate # Hx of HTN - maintain BP medications after 24 hours # Hx of Smoking -instructed to stop # Alcohol intake frequently -average at least 2-3 times a week -suggest thiame and Dt precaution # HLD -LDL#191 - Increse Lipitor to 80 mg daily # DVT prophylaxis -Patient placed on subcutaneous heparin. # Full code status -Patient is full code. will sign off
[2021-10-31 09:45] LABS: Chol/HDL Ratio 4.58 %
[2021-10-31] MEDS ORDERED: ASPIRIN 325 MG TAB PO SCH (10:00)
[2021-10-31] MEDS ORDERED: COLCHICINE 0.6 MG TAB PO PRN (10:49)
--- NOTE | 2021-10-31 10:49 | Event Note ---
Date: 10/31/21 Patient examined at bedside. Still has slight right-sided facial droop and right upper extremity weakness. Care plan discussed with patient and her . Imaging and labs were reviewed. Awaiting nephrology recommendations.
[2021-10-31] MEDS: ASPIRIN EC 325 MG TAB PO SCH (13:37)
[2021-10-31] MEDS: allopurinoL 100 MG TAB PO SCH (13:40)
[2021-10-31] MEDS: atenoloL 50 MG TAB PO SCH (13:41)
[2021-10-31] MEDS: THIAMINE 100 MG in SODIUM CHLORIDE 0.9% 50 ML IV SCH (14:49)
--- NOTE | 2021-10-31 19:10 | Cat Scan Report ---
CT BRAIN: 10/31/2021 INDICATION / CLINICAL INFORMATION: neurological change. Speech disturbance COMPARISON: CT brain 10/30/2021 FINDINGS: BRAIN/INTRACRANIAL STRUCTURES: Unenhanced CT images of the brain were obtained compared to the prior exam from 10/30/2021. There has been no change. Again seen is prominent diffuse cerebral and cerebellar atrophy. Extensive chronic white matter hypoa ttenuation is present throughout the cerebral hemispheric white matter. Somewhat more focal subcortic al chronic ischemic changes are present in the high left parietal region, unchanged when compared to the prior exam. There is no evidence of hemorrhage. There are no abnormal extra-axial fluid collections. EXTRACRANIAL STRUCTURES: Unremarkable. IMPRESSION: Chronic and age-related changes. No significant change when compared to 10/30/[address] scans at this location are performed using dose reduction to ALARA by means of automated expos ure control. Signer Name: Justo Garay MD Signed: 10/31/2021 7:06 PM Workstation Name: [id number]
[2021-11-01] MEDS: HEPARIN 5,000 UNIT/1 ML VIAL SUB-Q SCH ×2 (05:58→13:19)
[2021-11-01 06:41] LABS: Basophils % (Auto) 0.7 % (0.0-1.8); Eosinophils # (Auto) 0.1 K/mm3 (0.0-0.4); Eosinophils % (Auto) 1.8 % (0.0-4.3); Hematocrit 41.7 % (30.3-42.9); Hemoglobin 14.2 gm/dl (10.1-14.3); Lymphocytes # (Auto) 2.6 K/mm3 (1.2-5.4); Lymphocytes % (Auto) 41.9 % (13.4-35.0); Mean Corpuscular HGB Conc 34 % (30-34); Mean Corpuscular Volume 97 fl (79-97); Monocytes # (Auto) 0.6 K/mm3 (0.0-0.8); Monocytes % (Auto) 9.1 % (0.0-7.3); Platelet Count 212 K/mm3 (140-440); Red Blood Count 4.31 M/mm3 (3.65-5.03); Red Cell Distribution Width 14.9 % (13.2-15.2)
[2021-11-01 06:52] LABS: BUN/Creatinine Ratio 13; Blood Urea Nitrogen 12 mg/dL (7-17); Hemolysis Index 11
--- NOTE | 2021-11-01 08:03 | Progress Note ---
Assessment and Plan Assessment and plan: #Ischemic stroke -initial CT head showed remote L frontal and basal ganglia infarct -telemetry -continue lipitor and ASA -Echocardiogram showed normal ejection fraction no PFO noted -Initial and repeat CT head showed no acute abnormalities -MRI cervical spine and MRI brain final read pending #Hypertension -s/p permissive HTN -continue atenolol #Hyperlipidemia -continue lipitor #Advanced care planning -Disease education conducted, care plan discussed, diagnoses discussed, prognosis discussed, and patient acknowledges understanding with care plan -Time: +30 min History Interval history: Patient reports increased weakness in her right arm whenever she receives heparin injections. She is noticed fluctuation in her facial droop as well. She denies headache, chest pain or shortness of breath. Hospitalist Physical - Physical exam Narrative exam: GENERAL: Thin woman. In no acute distress. HEENT: Slight right-sided facial droop. CHEST/LUNGS: CTAB on room air HEART/CARDIOVASCULAR: RRR. No murmur, rubs or gallops appreciated. ABDOMEN: +BS. NT/ND. SKIN: No rashes noted. NEURO: Right-sided upper extremity weakness. Follows all commands and is ambulatory. EXTREMITIES: No cyanosis, clubbing or edema. PSYCH: Cooperative. - Constitutional Vitals: Temp Pulse Resp BP Pulse Ox 98 F 62 16 155/72 94 11/01/21 05:00 11/01/21 05:00 11/01/21 05:00 11/01/21 05:00 11/01/21 05:00 General appearance: Present: no acute distress, well-nourished HEART Score - HEART Score Troponin: Troponin T < 0.010 ng/mL (0.00-0.029) 10/30/21 23:37 Results - Labs CBC & Chem 7: 11/01/21 05:58 11/01/21 05:58 Labs: Laboratory Last Values WBC 6.3 K/mm3 (4.5-11.0) 11/01/21 05:58 RBC 4.31 M/mm3 (3.65-5.03) 11/01/21 05:58 Hgb 14.2 gm/dl (10.1-14.3) 11/01/21 05:58 Hct 41.7 % (30.3-42.9) 11/01/21 05:58 MCV 97 fl (79-97) 11/01/21 05:58 MCH 33 pg (28-32) H 11/01/21 05:58 MCHC 34 % (30-34) 11/01/21 05:58 RDW 14.9 % (13.2-15.2) 11/01/21 05:58 Plt Count 212 K/mm3 (140-440) 11/01/21 05:58 Lymph % (Auto) 41.9 % (13.4-35.0) H 11/01/21 05:58 [place] % (Auto) 9.1 % (0.0-7.3) H 11/01/21 05:58 Eos % (Auto) 1.8 % (0.0-4.3) 11/01/21 05:58 Baso % (Auto) 0.7 % (0.0-1.8) 11/01/21 05:58 Lymph # (Auto) 2.6 K/mm3 (1.2-5.4) 11/01/21 05:58 [place] # (Auto) 0.6 K/mm3 (0.0-0.8) 11/01/21 05:58 Eos # (Auto) 0.1 K/mm3 (0.0-0.4) 11/01/21 05:58 Baso # (Auto) 0.0 K/mm3 (0.0-0.1) 11/01/21 05:58 Add Manual Diff Complete 10/30/21 23:37 Total Counted 100 10/30/21 23:37 Seg Neutrophils % 46.5 % (40.0-70.0) 11/01/21 05:58 Seg Neuts % (Manual) 36.0 % (40.0-70.0) L 10/30/21 23:37 Band Neutrophils % 0 % 10/30/21 23:37 Lymphocytes % (Manual) 54.0 % (13.4-35.0) H 10/30/21 23:37 Reactive Lymphs % (Man) 3.0 % 10/30/21 23:37 Monocytes % (Manual) 7.0 % (0.0-7.3) 10/30/21 23:37 Eosinophils % (Manual) 0 % (0.0-4.3) 10/30/21 23:37 Basophils % (Manual) 0 % (0.0-1.8) 10/30/21 23:37 Metamyelocytes % 0 % 10/30/21 23:37 Myelocytes % 0 % 10/30/21 23:37 Promyelocytes % 0 % 10/30/21 23:37 Blast Cells % 0 % 10/30/21 23:37 Nucleated RBC % Not Reportable 10/30/21 23:37 Seg Neutrophils # 2.9 K/mm3 (1.8-7.7) 11/01/21 05:58 Seg Neutrophils # Man 2.3 K/mm3 (1.8-7.7) 10/30/21 23:37 Band Neutrophils # 0.0 K/mm3 10/30/21 23:37 Lymphocytes # (Manual) 3.5 K/mm3 (1.2-5.4) 10/30/21 23:37 Abs React Lymphs (Man) 0.2 K/mm3 10/30/21 23:37 Monocytes # (Manual) 0.4 K/mm3 (0.0-0.8) 10/30/21 23:37 Eosinophils # (Manual) 0.0 K/mm3 (0.0-0.4) 10/30/21 23:37 Basophils # (Manual) 0.0 K/mm3 (0.0-0.1) 10/30/21 23:37 Metamyelocytes # 0.0 K/mm3 10/30/21 23:37 Myelocytes # 0.0 K/mm3 10/30/21 23:37 Promyelocytes # 0.0 K/mm3 10/30/21 23:37 Blast Cells # 0.0 K/mm3 10/30/21 23:37 WBC Morphology Not Reportable 10/30/21 23:37 Hypersegmented Neuts Not Reportable 10/30/21 23:37 Hyposegmented Neuts Not Reportable 10/30/21 23:37 Hypogranular Neuts Not Reportable 10/30/21 23:37 Smudge Cells Not Reportable 10/30/21 23:37 Toxic Granulation Not Reportable 10/30/21 23:37 Toxic Vacuolation Not Reportable 10/30/21 23:37 Dohle Bodies Not Reportable 10/30/21 23:37 Pelger-Huet Anomaly Not Reportable 10/30/21 23:37 Nehemias Rods Not Reportable 10/30/21 23:37 Platelet Estimate Consistent w auto 10/30/21 23:37 Clumped Platelets Not Reportable 10/30/21 23:37 Plt Clumps, EDTA Not Reportable 10/30/21 23:37 Large Platelets Not Reportable 10/30/21 23:37 Giant Platelets Not Reportable 10/30/21 23:37 Platelet Satelliting Not Reportable 10/30/21 23:37 Plt Morphology Comment Not Reportable 10/30/21 23:37 RBC Morphology Not Reportable 10/30/21 23:37 Dimorphic RBCs Not Reportable 10/30/21 23:37 Polychromasia Not Reportable 10/30/21 23:37 Hypochromasia Not Reportable 10/30/21 23:37 Poikilocytosis Not Reportable 10/30/21 23:37 Anisocytosis 1+ 10/30/21 23:37 Microcytosis Not Reportable 10/30/21 23:37 Macrocytosis Not Reportable 10/30/21 23:37 Spherocytes Not Reportable 10/30/21 23:37 Pappenheimer Bodies Not Reportable 10/30/21 23:37 Sickle Cells Not Reportable 10/30/21 23:37 Target Cells Not Reportable 10/30/21 23:37 Tear Drop Cells Not Reportable 10/30/21 23:37 Ovalocytes Not Reportable 10/30/21 23:37 Helmet Cells Not Reportable 10/30/21 23:37 [place] Bodies Not Reportable 10/30/21 23:37 Sula Rings Not Reportable 10/30/21 23:37 Alicia Cells Not Reportable 10/30/21 23:37 Bite Cells Not Reportable 10/30/21 23:37 Crenated Cell Not Reportable 10/30/21 23:37 Elliptocytes Not Reportable 10/30/21 23:37 Acanthocytes (Spur) Not Reportable 10/30/21 23:37 Rouleaux Not Reportable 10/30/21 23:37 Hemoglobin C Crystals Not Reportable 10/30/21 23:37 Schistocytes Not Reportable 10/30/21 23:37 Malaria parasites Not Reportable 10/30/21 23:37 Jaspal Bodies Not Reportable 10/30/21 23:37 Hem Pathologist Commnt No 10/30/21 23:37 PT 15.4 Sec. (12.2-14.9) H 10/30/21 23:37 INR 1.09 (0.87-1.13) 10/30/21 23:37 APTT 29.4 Sec. (24.2-36.6) 10/30/21 23:37 Sodium 137 mmol/L (137-145) D 11/01/21 05:58 Potassium 4.1 mmol/L (3.6-5.0) 11/01/21 05:58 Chloride 102.6 mmol/L (98-107) 11/01/21 05:58 Carbon Dioxide 20 mmol/L (22-30) L 11/01/21 05:58 Anion Gap 19 mmol/L 11/01/21 05:58 BUN 12 mg/dL (7-17) 11/01/21 05:58 Creatinine 0.9 mg/dL (0.6-1.2) 11/01/21 05:58 Estimated GFR > 60 ml/min 11/01/21 05:58 BUN/Creatinine Ratio 13 % 11/01/21 05:58 Glucose 96 mg/dL (65-100) 11/01/21 05:58 POC Glucose 107 mg/dL (70-105) H 10/31/21 00:14 Hemoglobin A1c 5.5 % (4-6) 10/31/21 08:34 Calcium 10.0 mg/dL (8.4-10.2) D 11/01/21 05:58 Total Bilirubin 0.20 mg/dL (0.1-1.2) 10/30/21 23:37 AST 52 units/L (5-40) H 10/30/21 23:37 ALT 57 units/L (7-56) H 10/30/21 23:37 Alkaline Phosphatase 64 units/L (35-129) 10/30/21 23:37 Troponin T < 0.010 ng/mL (0.00-0.029) 10/30/21 23:37 Total Protein 5.8 g/dL (6.3-8.2) L 10/30/21 23:37 Albumin 3.8 g/dL (3.9-5) L 10/30/21 23:37 Albumin/Globulin Ratio 1.9 % 10/30/21 23:37 Triglycerides 354 mg/dL (2-149) H 10/31/21 08:34 Cholesterol 298 mg/dL (50-199) H 10/31/21 08:34 LDL Cholesterol Direct 191 mg/dL (50-130) H 10/31/21 08:34 HDL Cholesterol 65 mg/dL (40-59) H 10/31/21 08:34 Cholesterol/HDL Ratio 4.58 % 10/31/21 08:34 Vitamin B12 334.9 pg/mL (211-911) 10/31/21 08:34 TSH 3.280 mlU/mL (0.270-4.200) 10/30/21 23:37 Urine Color Colorless (Yellow) 10/30/21 Unknown Urine Turbidity Clear (Clear) 10/30/21 Unknown Urine pH 5.0 (5.0-7.0) 10/30/21 Unknown Ur Specific [place] 1.018 (1.003-1.030) 10/30/21 Unknown Urine Protein <15 mg/dl mg/dL (Negative) 10/30/21 Unknown Urine Glucose (UA) Neg mg/dL (Negative) 10/30/21 Unknown Urine Ketones Neg mg/dL (Negative) 10/30/21 Unknown Urine Blood Neg (Negative) 10/30/21 Unknown Urine Nitrite Neg (Negative) 10/30/21 Unknown Urine Bilirubin Neg (Negative) 10/30/21 Unknown Urine Urobilinogen < 2.0 mg/dL (<2.0) 10/30/21 Unknown Ur Leukocyte Esterase Neg (Negative) 10/30/21 Unknown Urine WBC (Auto) < 1.0 /HPF (0.0-6.0) 10/30/21 Unknown Urine RBC (Auto) 0.0 /HPF (0.0-6.0) 10/30/21 Unknown U Epithel Cells (Auto) < 1.0 /HPF (0-13.0) 10/30/21 Unknown Urine Mucus Few /HPF 10/30/21 Unknown [place]/IV: Voiding Method External Female Catheter Active Medications - Current Medications Current Medications: Generic Name Dose Route Start Last Admin Trade Name Freq PRN Reason Stop Dose Admin Acetaminophen 650 mg 10/31/21 02:37 Acetaminophen 325 Mg Tab PO Q4H PRN Pain, Mild (1-3) Allopurinol 100 mg 10/31/21 11:00 10/31/21 13:40 Allopurinol 100 Mg Tab PO 100 mg DAILY CARMELA Administration Aspirin 325 mg 10/31/21 12:00 10/31/21 13:37 Aspirin Ec 325 Mg Tab PO 325 mg QDAY CARMELA Administration Atenolol 50 mg 10/31/21 11:00 10/31/21 13:41 Atenolol 50 Mg Tab PO 50 mg DAILY CARMELA Administration Atorvastatin Calcium 80 mg 10/31/21 22:00 10/31/21 21:19 Atorvastatin 40 Mg Tab PO 80 mg QHS CARMELA Administration Bisacodyl 10 mg 10/31/21 02:37 Bisacodyl 10 Mg Rect Supp MA QDAY PRN Constipation Colchicine 1.8 mg 10/31/21 10:49 Colchicine 0.6 Mg Tab PO DAILY PRN gout Heparin Sodium (Porcine) 5,000 unit 10/31/21 06:00 11/01/21 05:58 Heparin 5,000 Unit/1 Ml Vial SUB-Q 5,000 unit Q8HR CARMELA Administration Thiamine HCl 100 mg/ Sodium 51 mls @ 100 mls/hr 10/31/21 13:00 10/31/21 14:49 Chloride IV 11/02/21 12:59 100 mls/hr QDAY CARMELA Administration Magnesium Hydroxide 30 ml 10/31/21 02:37 Magnesium Hydroxide (Mom) Oral Liqd Udc PO Q4H PRN Constipation Metoclopramide HCl 10 mg 10/31/21 02:37 Metoclopramide 10 Mg Tab PO Q6H PRN Nausea And Vomiting Morphine Sulfate 2 mg 10/31/21 02:37 Morphine 2 Mg/1 Ml Inj IV Q4H PRN Pain, Moderate (4-6) Morphine Sulfate 4 mg 10/31/21 02:37 Morphine 4 Mg/1 Ml Inj IV Q4H PRN Pain , Severe (7-10) Ondansetron HCl 4 mg 10/31/21 02:37 Ondansetron 4 Mg/2 Ml Inj IV Q8H PRN Nausea And Vomiting Promethazine HCl 25 mg 10/31/21 02:37 Promethazine 25 Mg Rect Supp MA Q6H PRN Nausea And Vomiting Sodium Chloride 10 ml 10/31/21 10:00 10/31/21 21:26 Sodium Chloride 0.9% 10 Ml Flush Syringe IV 10 ml BID CARMELA Administration Sodium Chloride 10 ml 10/31/21 02:37 Sodium Chloride 0.9% 10 Ml Flush Syringe IV PRN PRN LINE FLUSH
[2021-11-01] MEDS: ASPIRIN EC 325 MG TAB PO SCH (13:18)
[2021-11-01] MEDS: atenoloL 50 MG TAB PO SCH (13:19)
[2021-11-01] MEDS: allopurinoL 100 MG TAB PO SCH (13:19)
--- NOTE | 2021-11-01 14:14 | Electrocardiograph Report ---
[facility] Test Date: 2021-10-30 Test Time: 23:55:12 Pat Name: ANGELLA MATHEWS Department: Room: A467 1 Gender: F [place]: CECE : 1960 Requested By: SUSY HAHN Order Number: [id number] Reading MD: Lacho Holcomb Measurements Intervals [place] Rate: 74 P: 60 AL: 158 QRS: 32 QRSD: 97 T: 60 QT: 441 QTc: 492 Interpretive Statements Sinus rhythm Nonspecific ST and T wave abnormality No previous ECG available for comparison Electronically Signed On 11-01-2021 14:14:24 EDT by Lacho Holcomb
[2021-11-01] MEDS: THIAMINE 100 MG in SODIUM CHLORIDE 0.9% 50 ML IV SCH (18:00)
--- NOTE | 2021-11-01 18:00 | Vascular Lab Report ---
DUPLEX DOPPLER ULTRASOUND CAROTID, BILATERAL INDICATION / CLINICAL INFORMATION: stroke. COMPARISON: CTA from 10/30/2021 FINDINGS: RIGHT CAROTID: - PLAQUE ESTIMATE (%): < 50% - CCA velocity: 105 cm/sec. - ICA peak systolic velocity: 76 cm/sec. - ICA/CCA PSV Ratio: Less than 2 Right Vertebral Artery: Antegrade flow. LEFT CAROTID: - [place] ESTIMATE: < 50% - CCA velocity: 77 cm/sec. - ICA peak systolic velocity: 65 cm/sec. - ICA/CCA PSV Ratio: Less than 2 Left Vertebral Artery: Antegrade flow. IMPRESSION: 1. Right Internal Carotid Artery: Less than 50% diameter stenosis. 2. Left Internal Carotid Artery: Less than 50% diameter stenosis. Velocity criteria are extrapolated from diameter data as defined by the Society of Radiologists in Ul trasound Consensus Conference, Radiology 2003; 229;340-346. NO STENOSIS (NORMAL) * Plaque = none; ICA PSV < 125 cm/sec; ICA/CCA PSV Ratio < 2.0 <50% STENOSIS * Plaque < 50%; ICA PSV < 125 cm/sec; ICA/CCA PSV Ratio < 2.0 50-69% STENOSIS * Plaque > 50%; ICA PSV = 125-230 cm/sec; ICA/CCA PSV Ratio = 2.0-4.0 >70% BUT <100% STENOSIS * Plaque > 50%; ICA PSV > 230 cm/sec; ICA/CCA PSV Ratio > 4.0 NEAR OCCLUSION * Plaque = visible lumen; ICA PSV = high/low/none; ICA/CCA PSV Ratio = variable TOTAL OCCLUSION * Plaque = no lumen; ICA PSV = none; ICA/CCA PSV Ratio = N/A Signer Name: Britton Hunter MD Signed: 11/01/2021 5:56 PM Workstation Name: [id number]
--- NOTE | 2021-11-01 18:08 | Magnetic Resonance Report ---
MRI CERVICAL SPINE WITHOUT CONTRAST INDICATION / CLINICAL INFORMATION: Cervical Mylopathy, LT SIDED NUMBNESS. TECHNIQUE: Multisequence, multiplanar images of the cervical spine were obtained. COMPARISON: None available. FINDINGS: CRANIOCERVICAL JUNCTION:No significant abnormality. ALIGNMENT: No significant abnormality. VERTEBRAE:Normal marrow signal and vertebral body height for age. VISUALIZED SPINAL CORD: No cord compression; no focal area of abnormal signal intensity in the cervic al spinal cord [id number] ANALYSIS: C2-3: No significant disc abnormality, spinal canal stenosis, or neural foraminal stenosis. C3-4: No significant disc abnormality, spinal canal stenosis, or neural foraminal stenosis. C4-5: Midline disc bulge; neuroforamina and spinal cord normal C5-6: Disc height loss; bony spur towards right foraminal zone; uncovertebral joint hypertrophy on th e right side; mild right foraminal stenoses C6-7: Disc height loss; bony spur towards right side; uncovertebral joint hypertrophy on the right si de; mild right foraminal stenoses C7-T1: No significant disc abnormality, spinal canal stenosis, or neural foraminal stenosis. PARASPINAL SOFT TISSUES: No significant abnormality. ADDITIONAL FINDINGS: None. IMPRESSION: No focal disc herniation, spinal canal stenosis or nerve root compression. No cord compression; no signal intensity changes in the cervical spinal cord Signer Name: Marcel Tamayo MD Signed: 11/01/2021 6:00 PM Workstation Name: [id number]
--- NOTE | 2021-11-01 18:51 | Magnetic Resonance Report ---
NONENHANCED MR SCAN OF THE BRAIN: INDICATION / CLINICAL INFORMATION: stroke. TECHNIQUE: Multiplanar, multisequence MR images of the brain obtained. COMPARISON: CT scan of the head from 10/31/2021 FINDINGS: BRAIN / INTRACRANIAL CONTENTS: Subacute lacune along the posterior limb of left internal capsule; mor e than 12 hours old (increased T2 signal intensity) but less than 5 days old (low ADC); no subacute t erritorial infarction; in the gradient echo images, chronic microbleed along the right external capsu le; this there history of hypertension No focal lesion in the brainstem; no acute focal lesion in the cerebellar hemispheres. Chronic lacuna e in both basal ganglia; multiple focal subcortical lesions due to chronic subcortical ischemia CRANIOCERVICAL JUNCTION: No significant abnormality. VASCULAR FLOW-VOIDS: No significant abnormality. ORBITS: No significant abnormality of visualized orbits. SINUSES / MASTOIDS: No significant abnormality of visualized sinuses and mastoid air cells. ADDITIONAL FINDINGS: None. IMPRESSION: 1. Subacute lacune along the posterior limb of left internal capsule; chronic microbleed along the ri ght external capsule; multiple subcortical lesions due to chronic ischemia Signer Name: Marcel Tamayo MD Signed: 11/01/2021 6:46 PM Workstation Name: [id number]
[2021-11-02] MEDS: THIAMINE 100 MG in SODIUM CHLORIDE 0.9% 50 ML IV SCH (09:19)
[2021-11-02] MEDS: ASPIRIN EC 325 MG TAB PO SCH (09:20)
[2021-11-02] MEDS: allopurinoL 100 MG TAB PO SCH (09:20)
[2021-11-02] MEDS: atenoloL 50 MG TAB PO SCH (09:20)
--- NOTE | 2021-11-02 11:50 | Discharge Summary ---
Providers - Providers Date of Admission: 10/31/21 02:38 Date of discharge: 11/02/21 Attending physician: MARNIE WILKERSON MD 10/31/21 Consult to Physician [CONS] Routine Comment: Consulting Provider: SHARI HILL Physician Instructions: Reason For Exam: CVA 10/31/21 02:38 Consult to Dietitian/Nutrition [CONS] Routine Physician Instructions: Reason For Exam: Reason for Consult: Nutrition Recommendations Reason for Consult: Diet education Occupational Therapy Evaluate and Treat [CONS] Routine Comment: Reason For Exam: Neuro deficits Physical Therapy Evaluation and Treat [CONS] Routine Comment: Reason For Exam: Neuro deficits 10/31/21 02:40 Speech Therapy Evaluation and Treat [CONS] Routine Reason For Exam: swallow eval Primary care physician: SNOW CASTRO Hospitalization Reason for admission: Ischemic CVA Condition: Serious Pertinent studies: Reviewed. Procedures: None. Hospital course: Patient is a 61-year-old female past medical history of hypertension and tobacco dependence who presented with right-sided weakness that started the evening before. On presentation, the patient was found to be hemodynamically stable with facial asymmetry (drooping of right lower face). CT head noncontrast was unremarkable as well as CT angio head and neck. Carotid ultrasounds were performed and found to be unremarkable, and TTE was negative for PFO. MRI brain was performed revealing "subacute lacunar along the posterior limb of the left internal capsule with chronic microbleed along the right external capsule and multiple subcortical lesions due to chronic ischemia". Neurology was consulted for further management. Patient was started on aspirin and atorvastatin. Patient's hemoglobin A1c was 5.5. Patient was also counseled about smoking cessation, she expressed understanding. Patient was evaluated by physical therapy who recommended outpatient PT. Patient expresses understanding, and she is medically clear for discharge. Disposition: 01 HOME / SELF CARE / HOMELESS Final Discharge Diagnosis (Prints w/discharge instructions): Ischemic CVA, hypertension, hyperlipidemia, tobacco dependence. Time spent for discharge: 45 min Core Measure Documentation - Palliative Care Palliative Care/ Comfort Measures: Not Applicable - Core Measures Any of the following diagnoses?: stroke - Stroke Discharge Requirements Statin for LDL = or >70 mg/dl on DC: Yes Anticoag for atrial fib/atrial flutter: Not Applicable Antithrombotic for ischemic stroke: Yes Exam - Constitutional Vitals: Temp Pulse Resp BP Pulse Ox 97.4 F L 60 18 137/83 98 11/02/21 08:01 11/02/21 10:00 11/02/21 10:00 11/02/21 08:01 11/02/21 10:00 General appearance: Present: no acute distress, well-nourished - EENT Eyes: Present: PERRL, EOM intact ENT: hearing intact, clear oral mucosa, dentition normal - Neck Neck: Present: supple, normal ROM - Respiratory Respiratory effort: normal Respiratory: bilateral: CTA - Cardiovascular Rhythm: regular Heart Sounds: Present: S1 & S2 - Extremities Extremities: no ischemia, pulses intact, pulses symmetrical, No edema, normal temperature, normal color Peripheral Pulses: within normal limits - Abdominal General gastrointestinal: Present: soft, non-tender, non-distended, normal bowel sounds Female genitourinary: Present: deferred - Rectal Rectal Exam: deferred - Integumentary Integumentary: Present: clear, warm, dry - Musculoskeletal Musculoskeletal: right sided weakness - Psychiatric Psychiatric: appropriate mood/affect, intact judgment & insight, memory intact, cooperative - Neurologic Neurologic: CNII-XII intact, moves all extremities - Allied Health Allied health notes reviewed: nursing Plan Activity: advance as tolerated Diet: low salt Additional Instructions: Patient is a 61-year-old female past medical history of hypertension and tobacco dependence who presented with right-sided weakness that started the evening before. On presentation, the patient was found to be hemodynamically stable with facial asymmetry (drooping of right lower face). CT head noncontrast was unremarkable as well as CT angio head and neck. Carotid ultrasounds were performed and found to be unremarkable, and TTE was negative for PFO. MRI brain was performed revealing "subacute lacunar along the posterior limb of the left internal capsule with chronic microbleed along the right external capsule and multiple subcortical lesions due to chronic ischemia". Neurology was consulted for further management. Patient was started on aspirin and atorvastatin. Patient's hemoglobin A1c was 5.5. Patient was also counseled about smoking cessation, she expressed understanding. Patient was evaluated by physical therapy who recommended outpatient PT. Patient expresses understanding, and she is medically clear for discharge. Care Plan Goals: Patient is medically cleared for discharge. Assessment: Patient is a 61-year-old female past medical history of hypertension and tobacco dependence who presented with right-sided weakness that started the evening before. On presentation, the patient was found to be hemodynamically stable with facial asymmetry (drooping of right lower face). CT head noncontrast was unremarkable as well as CT angio head and neck. Carotid ultrasounds were performed and found to be unremarkable, and TTE was negative for PFO. MRI brain was performed revealing "subacute lacunar along the posterior limb of the left internal capsule with chronic microbleed along the right external capsule and multiple subcortical lesions due to chronic ischemia". Neurology was consulted for further management. Patient was started on aspirin and atorvastatin. Patient's hemoglobin A1c was 5.5. Patient was also counseled about smoking cessation, she expressed understanding. Patient was evaluated by physical therapy who recommended outpatient PT. Patient expresses understanding, and she is medically clear for discharge. Follow up with: SNOW CASTRO MD [Primary Care Provider] - 3-5 Days NINA DIXON MD [Staff Physician] - 7 Days Forms: Work/School Release Form Prescriptions: AtorvaSTATin [Lipitor] 80 mg PO QHS #30 tablet Aspirin EC [Ecotrin] 325 mg PO QDAY #30 tablet
[2021-11-02 13:15] VITALS: BP 161/86
== END 2021-11-02 14:50 | disposition home or self-care (01) | DRG 66 ==
LOC: ED 23:08 → 4A 10-31 02:38
PROVIDERS: ADMIT Internal Medicine Geriatric Medicine; ATTEND Student in an Organized Health Care Education/Training Program
DX: I63.9 Cerebral infarction, unspecified (principal); I10 Essential (primary) hypertension; E78.5 Hyperlipidemia, unspecified
CPT/HCPCS: 36415; 70450; 70496; 70498; 70551; 71045; 72141; 80048; 80053; 80061; 81001; 82607; 82962; 83036; 84443; 84484; 85007; 85025; 85610; 85730; 93005; 93306; 93880; 99406; G0378; C8929; J1644; J2997; J3411; Q9967